=== PATIENT | female | born 1995 | race African-American/Black ===

== ENCOUNTER 2017-02-23 11:22 | Emergency (ER) | payer MEDICAID ==
[~2017-02-23 11:22] MED LIST: CEPH500C3 PO; PREN1TAB30 PO
[2017-02-23 11:24] VITALS: BP 137/87; PULSE 74; RESP 15; TEMP 98.1; O2SAT 99
== END 2017-02-23 12:30 | disposition left against medical advice (07) ==
LOC: NED 11:22
DX: N94.9 Unspecified condition associated with female genital organs and menstrual cycle (principal)
CPT/HCPCS: 99281

== ENCOUNTER 2017-03-18 11:24 | Emergency (ER) | payer MEDICAID ==
[~2017-03-18] VITALS: Ht 162.6 cm; Wt 75.0 kg
[2017-03-18 11:26] VITALS: BP 137/83; PULSE 75; RESP 16; TEMP 98.6; O2SAT 99
--- NOTE | 2017-03-18 12:57 | PD ---
HPI . left great toe pain Chief Complaint: Injury Time Seen by Provider: 13:00 Travel History International Travel<30 days: No Contact w/Intl Traveler<30days: No Traveled to known affect area: No History of Present Illness HPI 21 yr old female here with left great toe pain. She was lifting a flat screen TV when it slipped and fell on her left great toe. She now reports moderate pain that intensifies with walking (/10). Pain is located on the dorsum of the great toe. She has no open cuts or wounds. She took Tylenol yesterday, which helped with the pain. [facility] Past Medical History Diminished Hearing: No Hypertension: Yes ?: Not LMP: CURRENT : 1 Para: 1 Past Surgical History Section: Yes (01/05/15) Gynecologic Surgery: Yes Social History Alcohol Use: No Tobacco Use: No Substance Use: No Allergies-Medications (Allergen,Severity, Reaction): Coded Allergies: No Known Allergies (Unverified , 03/08/16) Reported Meds & Prescriptions Reported Meds & Active Scripts Active Ibuprofen 800 Mg Tab 800 Mg PO TID Reported Labetalol (Labetalol HCl) 100 Mg Tab 100 Mg PO DAILY Review of Systems General / Constitutional: No: Fever Eyes: No: Visual changes HENT: No: Headaches Cardiovascular: No: Chest Pain or Discomfort Respiratory: No: Shortness of Breath Gastrointestinal: No: Abdominal Pain Genitourinary: No: Dysuria Musculoskeletal: Positive: Pain (left great toe pain) Skin: No Rash Neurologic: No: Weakness Psychiatric: No: Depression Endocrine: No: Polydipsia Hematologic/Lymphatic: No: Easy Bruising Physical Exam Narrative GENERAL: AAO x 3, no acute distress, Well-nourished, well-developed patient. SKIN: Warm and dry. No visible rashes or bruising. no ecchymosis or edema HEAD: Normocephalic and atraumatic. EYES: No scleral icterus. No injection or drainage. ENT: No nasal drainage noted. Mucous membranes pink. Airway patent. NECK: Supple, trachea midline. No JVD. CARDIOVASCULAR: Regular rate and rhythm without murmurs, gallops, or rubs. RESPIRATORY: Breath sounds equal bilaterally. No accessory muscle use. No rhonchi or rales. GASTROINTESTINAL: visual inspection normal EXTREMITIES: No cyanosis or edema. left great toe tender to touch at proximal end, decreased ability to move due to pain. pain with walking BACK: No obvious deformity. NEURO: CN II-12 intact, sld educational aide strength normal b/l, UE and LE 5/5, no focal deficits PSYCH: AAO x 3, normal affect. Data Data Last Documented VS Vital Signs Date Time Temp Pulse Resp B/P Pulse Ox O2 Delivery O2 Flow Rate FiO2 03/18/17 13:52 97.8 76 16 120/81 99 03/18/17 11:26 Room Air Orders Acetaminophen (Tylenol) (03/18/17 13:00) Toe (Min 2vws) (03/18/17 13:00) ^ Other Nursing Orders (03/18/17 13:42) Shoe Cast (03/18/17 ) MDM Medical Decision Making Medical Screen Exam Complete: Yes Emergency Medical Condition: Yes Medical Record Reviewed: Yes Differential Diagnosis left great toe contusion, leg great toe fracture, less likely dislocation Narrative Course 21 yr old female here with left great toe pain. She has tenderness and pain with movement. Xray imaging ordered Last Impressions Toe X-Ray 03/18/17 1300 Signed Impressions: Service Date/Time: Saturday, March 18, 2017 13:18 - CONCLUSION: 1. Tiny fracture at the base of the proximal phalanx great toe. Harvinder Martinez MD discussed with patient. Post op shoe provided. Recommend f/u with podiatry. Ibuprofen for pain relief. Work note provided per patient request. Patient verbalized understanding of instructions, questions were answered, and thanked me for their care. I advised them if their condition worsens, please return to the nearest emergency room for further care. Diagnosis Primary Impression: Fractured great toe Qualified Code: S92.415A - Closed nondisplaced fracture of proximal phalanx of left great toe, initial encounter Referrals: [employer] Patient Instructions: General Instructions Departure Forms: Tests/Procedures, Work Release Enter return to work date: Mar 19, 2017 Additional Instructions: Please return to emergency department if your symptoms return or worsen. Follow up with your primary care provider. Take medications as prescribed. Follow-up with the chuck boner as we discussed. Med/Other Pt SpecificInfo: Prescription(s) given Scripts Ibuprofen 800 Mg [id number] Mg PO TID #21 TAB Prov:Minoo Boateng DO 03/18/17 Disposition: 01 DISCHARGE HOME Condition: Stable Melinda Ron Mar 18, 2017 12:57
[2017-03-18] MEDS ORDERED: ACETAMINOPHEN 325 MG TAB PO ONE (13:00)
[2017-03-18] MEDS ORDERED: LABE100T2 PO (13:10)
--- NOTE | 2017-03-18 13:38 | RADRPT ---
EXAM DATE/TIME: 03/18/2017 13:18 [place] COMPARISON: No previous studies available for comparison. INDICATIONS : Crushing injury to left hallux. MEDICAL HISTORY : None. SURGICAL HISTORY : None. ENCOUNTER: Initial ACUITY: 1 day PAIN SCORE: 8/10 LOCATION: Left hallux, interphalangeal joint FINDINGS: Examination of the first digit of the left foot demonstrates soft tissue swelling. There appears to b e minimal fracture along the base of the proximal phalanx laterally. Distal great toe is intact. CONCLUSION: 1. Tiny fracture at the base of the proximal phalanx great toe. Harvinder Martinez MD on March 18, 2017 at 13:32 Board Certified Radiologist. This report was verified electronically.
[2017-03-18] MEDS ORDERED: IBUP800T23 PO (13:42)
[2017-03-18 13:52] VITALS: BP 120/81; TEMP 97.8
== END 2017-03-18 13:52 | disposition home or self-care (01) ==
LOC: NEPK 11:24
DX: S92.415A Nondisplaced fracture of proximal phalanx of left great toe, initial encounter for closed fracture (principal); I10 Essential (primary) hypertension; Z79.899 Other long term (current) drug therapy; W22.8XXA Striking against or struck by other objects, initial encounter
CPT/HCPCS: 73660; 99283; L3260

== ENCOUNTER 2017-10-07 06:31 | Emergency (ER) | payer MEDICAID ==
[~2017-10-07] VITALS: Ht 162.6 cm; Wt 72.0 kg
[~2017-10-07 06:31] MED LIST changes: -CEPH500C3 PO; +IBUP1TAB7 PO; +LABE100T2 PO; -PREN1TAB30 PO
[2017-10-07 06:33] VITALS: BP 133/84; PULSE 115; RESP 16; TEMP 100.5; O2SAT 98
--- NOTE | 2017-10-07 07:11 | PD ---
HPI Chief Complaint: Dizziness Time Seen by Provider: 06:57 Travel History International Travel<30 days: No Contact w/Intl Traveler<30days: No Traveled to known affect area: No History of Present Illness HPI The patient is a 22-year-old Lizeth female who presents emergency department for cough and cold symptoms that started yesterday. The patient place of intermittent headache, sore throat, a lump under the chin, and a dry nonproductive cough. She also complains of mild malaise and myalgias. She does note 2 episodes of diarrhea, denies any nausea, vomiting, or abdominal pain. She denies any dysuria, frequency, or urgency. The patient's last menstrual cycle was January or 18/02/2018. She does note intermittent fevers, chills, and sweats. She did not receive an influenza vaccination this year. She also complains of inflammation around the left posterior molar, but denies any sensitivity to cold or heat. Symptoms are mild to moderate without any alleviating or exacerbating factors. She does have a 1-year-old at home but denies any sick contacts. PFSH Past Medical History Cardiovascular Problems: Yes (HBP) Diminished Hearing: No Hypertension: Yes Immunizations Current: Yes Tetanus Vaccination: < 5 Years Influenza Vaccination: No ?: Unknown LMP: 09/27/17 : 1 Para: 1 Past Surgical History Section: Yes (01/05/15) Gynecologic Surgery: Yes (C- SECTION) Social History Alcohol Use: No (PT DENIES) Tobacco Use: No (PT DENIES ) Substance Use: No (PT DENIES) Allergies-Medications (Allergen,Severity, Reaction): Coded Allergies: No Known Allergies (Unverified Adverse Reaction, Unknown, 10/07/17) Reported Meds & Prescriptions Reported Meds & Active Scripts Active Review of Systems Except as stated in HPI: all other systems reviewed are Neg General / Constitutional: Positive: Fever, Chills HENT: Positive: Headaches, Lightheadedness, Sore Throat, Neck Pain, Dental Difficulties Cardiovascular: No: Chest Pain or Discomfort Respiratory: Positive: Cough, No: Shortness of Breath Gastrointestinal: Positive: Diarrhea, No: Nausea, Vomiting, Abdominal Pain Genitourinary: No: Dysuria Musculoskeletal: Positive: Myalgias Skin: No Rash Physical Exam Narrative GENERAL: Awake, alert, pleasant 22-year-old female who appears her stated age and is in no acute respiratory distress. SKIN: Focused skin assessment warm/dry. HEAD: Atraumatic. Normocephalic. EYES: Pupils equal and round. No scleral icterus. No injection or drainage. ENT: No nasal bleeding or discharge. Inflammation noted around the left posterior molar, tooth #17. Oropharynx reveals erythema without exudate. NECK: Trachea midline. No JVD. Submandibular [place] lymph node which is mobile but tender. No meningeal signs noted. CARDIOVASCULAR: Regular, tachycardic with a rate of 110. RESPIRATORY: No accessory muscle use. Clear to auscultation. Breath sounds equal bilaterally. GASTROINTESTINAL: Abdomen soft, non-tender, nondistended. No rebound tenderness , guarding, rigidity. MUSCULOSKELETAL: No obvious deformities. No clubbing. No cyanosis. No edema. NEUROLOGICAL: Awake and alert. No obvious cranial nerve deficits. Motor grossly within normal limits. Normal speech. PSYCHIATRIC: Appropriate mood and affect; insight and judgment normal. Data Data Last Documented VS Vital Signs Date Time Temp Pulse Resp B/P (MAP) Pulse Ox O2 Delivery O2 Flow Rate FiO2 10/07/17 06:33 100.5 115 16 133/84 (100) 98 Orders Orders Complete Blood Count With Diff (10/07/17 07:05) Comprehensive Metabolic Panel (10/07/17 07:05) Urinalysis - C+S If Indicated (10/07/17 07:05) Influenzae A/B Antigen (10/07/17 07:05) Group A Rapid Strep Screen (10/07/17 07:05) Sodium Chlor 0.9% 1000 Ml Inj (Ns 1000 M (10/07/17 07:15) Ketorolac Inj (Toradol Inj) (10/07/17 07:15) Sodium Chlor 0.9% 1000 Ml Inj (Ns 1000 M (10/07/17 08:00) Strep Culture (Group A) (10/07/17 07:19) Labs Laboratory Tests Test 10/07/17 07:19 White Blood Count 7.2 TH/MM3 Red Blood Count 4.27 MIL/MM3 Hemoglobin 12.7 GM/DL Hematocrit 38.2 % Mean Corpuscular Volume 89.4 FL Mean Corpuscular Hemoglobin 29.8 PG Mean Corpuscular Hemoglobin Concent 33.3 % Red Cell Distribution Width 12.8 % Platelet Count 168 TH/MM3 Mean Platelet Volume 11.4 FL Neutrophils (%) (Auto) 85.7 % Lymphocytes (%) (Auto) 4.4 % Monocytes (%) (Auto) 9.6 % Eosinophils (%) (Auto) 0.1 % Basophils (%) (Auto) 0.2 % Neutrophils # (Auto) 6.2 TH/MM3 Lymphocytes # (Auto) 0.3 TH/MM3 Monocytes # (Auto) 0.7 TH/MM3 Eosinophils # (Auto) 0.0 TH/MM3 Basophils # (Auto) 0.0 TH/MM3 CBC Comment DIFF FINAL Differential Comment Urine Color YELLOW Urine Turbidity HAZY Urine pH 6.0 Urine Specific [place] 1.029 Urine Protein 30 mg/dL Urine Glucose (UA) NEG mg/dL Urine Ketones 80 mg/dL Urine Occult Blood NEG Urine Nitrite NEG Urine Bilirubin NEG Urine Urobilinogen LESS THAN 2.0 MG/DL Urine Leukocyte Esterase NEG Urine RBC 1 /hpf Urine WBC 2 /hpf Urine Squamous Epithelial Cells 11 /hpf Urine Mucus FEW /lpf Microscopic Urinalysis Comment CULT NOT INDICATED Blood Urea Nitrogen 6 MG/DL Creatinine 0.75 MG/DL Random Glucose 96 MG/DL Total Protein 8.1 GM/DL Albumin 3.9 GM/DL Calcium Level 9.4 MG/DL Alkaline Phosphatase 43 U/L Aspartate Amino Transf (AST/SGOT) 18 U/L Alanine Aminotransferase (ALT/SGPT) 11 U/L Total Bilirubin 0.4 MG/DL Sodium Level 135 MEQ/L Potassium Level 4.0 MEQ/L Chloride Level 104 MEQ/L Carbon Dioxide Level 22.5 MEQ/L Anion Gap 9 MEQ/L Estimat Glomerular Filtration Rate 117 ML/MIN [facility] Medical Decision Making Medical Screen Exam Complete: Yes Emergency Medical Condition: Yes Medical Record Reviewed: Yes Interpretation(s) Laboratory Tests Test 10/07/17 07:19 White Blood Count 7.2 TH/MM3 Red Blood Count 4.27 MIL/MM3 Hemoglobin 12.7 GM/DL Hematocrit 38.2 % Mean Corpuscular Volume 89.4 FL Mean Corpuscular Hemoglobin 29.8 PG Mean Corpuscular Hemoglobin Concent 33.3 % Red Cell Distribution Width 12.8 % Platelet Count 168 TH/MM3 Mean Platelet Volume 11.4 FL Neutrophils (%) (Auto) 85.7 % Lymphocytes (%) (Auto) 4.4 % Monocytes (%) (Auto) 9.6 % Eosinophils (%) (Auto) 0.1 % Basophils (%) (Auto) 0.2 % Neutrophils # (Auto) 6.2 TH/MM3 Lymphocytes # (Auto) 0.3 TH/MM3 Monocytes # (Auto) 0.7 TH/MM3 Eosinophils # (Auto) 0.0 TH/MM3 Basophils # (Auto) 0.0 TH/MM3 CBC Comment DIFF FINAL Differential Comment Urine Color YELLOW Urine Turbidity HAZY Urine pH 6.0 Urine Specific [place] 1.029 Urine Protein 30 mg/dL Urine Glucose (UA) NEG mg/dL Urine Ketones 80 mg/dL Urine Occult Blood NEG Urine Nitrite NEG Urine Bilirubin NEG Urine Urobilinogen LESS THAN 2.0 MG/DL Urine Leukocyte Esterase NEG Urine RBC 1 /hpf Urine WBC 2 /hpf Urine Squamous Epithelial Cells 11 /hpf Urine Mucus FEW /lpf Microscopic Urinalysis Comment CULT NOT INDICATED Blood Urea Nitrogen 6 MG/DL Creatinine 0.75 MG/DL Random Glucose 96 MG/DL Total Protein 8.1 GM/DL Albumin 3.9 GM/DL Calcium Level 9.4 MG/DL Alkaline Phosphatase 43 U/L Aspartate Amino Transf (AST/SGOT) 18 U/L Alanine Aminotransferase (ALT/SGPT) 11 U/L Total Bilirubin 0.4 MG/DL Sodium Level 135 MEQ/L Potassium Level 4.0 MEQ/L Chloride Level 104 MEQ/L Carbon Dioxide Level 22.5 MEQ/L Anion Gap 9 MEQ/L Estimat Glomerular Filtration Rate 117 ML/MIN Date/Time Source Procedure Growth Status 10/07/17 07:19 Throat Group A Streptococcus Screen Pending Received 10/07/17 07:19 Nasal Aspirate Influenza Types A,B Antigen (TEN) - Final Positive For Flu A Antigen Complete 10/07/17 07:19 Throat Group A Streptococcus Screen (TEN) - Final Complete Differential Diagnosis Differential diagnosis includes pericoronitis, dental abscess, pharyngitis, strep pharyngitis, influenza, viral syndrome, bronchitis, URI, dehydration. Narrative Course IV was established, labs are drawn and sent, and the patient was placed on cardiac telemetry monitoring and continuous pulse oximetry monitoring. The patient was administered normal saline and Toradol. Strep screen and influenza screen were sent to lab. CBC and CMP are unremarkable. Strep screen is negative. UA reveals 80 of ketones, therefore, patient was administered a second liter of IV fluids. Influenza screen is positive. The patient will be placed on Tamiflu for influenza A and Peridex for her pericoronitis. She is advised to follow-up with an oral surgeon. Return if symptoms worsen or progress. Plenty fluids to stay hydrated. Follow-up with a primary physician. Diagnosis Primary Impression: Influenza A Additional Impression: Pericoronitis Patient Instructions: General Instructions Additional Instructions: Medications as directed. Follow-up with your primary physician. Follow-up with an oral surgeon. Plenty fluids to stay hydrated. Please provide the patient a copy of her lab work and flu results at discharge. Med/Other Pt SpecificInfo: Prescription(s) given Scripts Chlorhexidine Gluconate (Mouth) Liq (Peridex Liq) 0.12% Soln 15 ML SWISH-SPIT BID, #473 ML 0 Refills Prov: Aakash Lanza MD 10/07/17 Oseltamivir (Tamiflu) 75 Mg Cap 75 MG PO BID for Mgmt Viral Infection for 5 Days, #10 CAP 0 Refills Prov: Aakash Lanza MD 10/07/17 Disposition: 01 DISCHARGE HOME Condition: Stable Aakash Lanza MD Oct 07, 2017 07:11
[2017-10-07] MEDS ORDERED: KETOROLAC TROMETHAMINE 30 MG/ML (IVP) VIAL IV PUSH ONE (07:15)
[2017-10-07] MEDS ORDERED: SODIUM CHLOR 0.9% 1000 ML INJ 1,000 ML IV ONE ×2 (07:15→08:00)
[2017-10-07 07:42] LABS: AUTOMATED NEUTROPHIL # 6.2 TH/MM3 (1.8-7.7); BASOPHIL % 0.2 % (0.0-2.0); EOSINOPHIL % 0.1 % (0.0-4.0); HEMATOCRIT 38.2 % (35.0-46.0); HEMOGLOBIN 12.7 GM/DL (11.6-15.3); LYMPH % 4.4 % (9.0-44.0); LYMPHOCYTE # 0.3 TH/MM3 (1.0-4.8); MEAN CELL VOLUME 89.4 FL (80.0-100.0); MEAN CORPUSCULAR HEMOGLOBIN 29.8 PG (27.0-34.0); MEAN CORPUSCULAR HGB CONC 33.3 % (32.0-36.0); MEAN PLATELET VOLUME 11.4 FL (7.0-11.0); MONO % 9.6 % (0.0-8.0); MONOCYTE # 0.7 TH/MM3 (0-0.9); NEUT % 85.7 % (16.0-70.0); PLATELET COUNT 168 TH/MM3 (150-450); RED BLOOD COUNT 4.27 MIL/MM3 (4.00-5.30); RED CELL DISTRIBUTION WIDTH 12.8 % (11.6-17.2); WHITE BLOOD COUNT 7.2 TH/MM3 (4.0-11.0)
[2017-10-07 07:47] LABS: BILIRUBIN, URINE NEG (NEG); BLOOD, URINE NEG (NEG); GLUCOSE,URINE NEG (NEG); KETONE, URINE 80 mg/dL (NEG); MUCUS URINE FEW /lpf (OCC); NITRITE,URINE NEG (NEG); SQUAMOUS EPITHELIAL CELL URINE 11 /hpf (0-5); URINE COLOR YELLOW (YELLW/STRAW); URINE LEUKOCYTE ESTERASE NEG (NEG)
[2017-10-07 08:01] LABS: ALT (GPT) 11 U/L (10-53)
[2017-10-07 08:04] LABS: ALKALINE PHOSPHATASE 43 U/L (45-117); TOTAL BILIRUBIN ADULT 0.4 MG/DL (0.2-1.0); TOTAL PROTEIN 8.1 GM/DL (6.4-8.2)
[2017-10-07 08:07] LABS: ALBUMIN 3.9 GM/DL (3.4-5.0); AST (GOT) 18 U/L (15-37); BICARBONATE 22.5 MEQ/L (21.0-32.0); BLOOD UREA NITROGEN 6 MG/DL (7-18); CALCIUM 9.4 MG/DL (8.5-10.1); CHLORIDE 104 MEQ/L (98-107); CREATININE 0.75 MG/DL (0.50-1.00); GLOMERULAR FILTRATION RATE 117 ML/MIN (>89); GLUCOSE,RANDOM 96 MG/DL (74-106); SODIUM (NA) 135 MEQ/L (136-145)
[2017-10-07] MEDS ORDERED: PERI0.126 SWISH-SPIT (08:48)
[2017-10-07] MEDS ORDERED: OSEL75 PO (08:48)
[2017-10-07 09:14] VITALS: RESP 17
== END 2017-10-07 10:51 | disposition home or self-care (01) ==
LOC: NEPC 06:31
DX: J10.1 Influenza due to other identified influenza virus with other respiratory manifestations (principal); K05.30 Chronic periodontitis, unspecified
CPT/HCPCS: 80053; 81001; 85025; 87081; 87804; 87880; 96361; 96374; 99283; J1885; J7030